=== PATIENT | female | born 1965 | race African-American/Black ===

== ENCOUNTER 2017-04-11 16:52 | Inpatient (IN) | payer OTHER, MEDICARE ==
[~2017-04-11] VITALS: Ht 157.5 cm; Wt 97.1 kg
[~2017-04-11 16:52] MED LIST: ADVAIR 250-501 EACH INH; ASPIRIN325 M2 PO; CARVEDILOL6.25 M1 PO; CIPRO500 M1 PO; FLAGYL500 MG PO; LASIX20 M1 PO; LEVAQUIN500 M1 PO; LISINOPRIL20 M1 PO; METHOTREXATE2.5 M2 PO; MEXILETINE HCL150 M1 PO; PREDNISONE20 M1 PO; SPIRONOLACTONE25 M1 PO; ULTRAM50 M1 PO; VENTOLIN HFA18 GM INH
--- NOTE | 2017-04-11 17:03 | NUR ---
51 YO FEMALE TO TRIAGE STATING "ME DEFIBRILLATOR WENT OFF" STATES SHE WAS JUST SITTING DOWN PLAYING ON HER PHONE WHEN SHE STARTED TO GET LIGHTHEADED. STATES NEXT THING SHE KNEW SHE DROPPED HER PHONE AND HAD PAIN/PRESSURE ON L SIDE OF CHEST. STATES SHE CURRENTLY STILL HAS THE PRESSURE BUT STATES THE PAIN HAS SUBSIDED. EKG IN PROGRESS. 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
--- NOTE | 2017-04-11 17:23 | NUR ---
PT NSR ON COMPLAINT SUPERVISOR WITH OCCASIONAL PAC'S. BRII BARR AT BEDSIDE FOR EVAL.
[2017-04-11] MEDS ORDERED: ASPIRIN EC81 M1 PO (17:32)
[2017-04-11] MEDS ORDERED: PRINIVIL5 M1 PO (17:34)
[2017-04-11] MEDS ORDERED: LASIX40 M1 PO (17:34)
[2017-04-11] MEDS ORDERED: PREDNISONE2.5 M1 PO (17:35)
[2017-04-11] MEDS ORDERED: CARVEDILOL12.5 M1 PO (17:36)
[2017-04-11] MEDS ORDERED: SINGULAIR10 M1 PO (17:36)
[2017-04-11 17:37] LABS: ABSOLUTE BASOPHIL COUNT 0.1 /CUMM (0.0-0.2); ABSOLUTE EOSINOPHIL COUNT 0.8 /CUMM (0.0-0.7); ABSOLUTE GRANULOCYTE CT 3.3 /CUMM (1.4-6.5); ABSOLUTE LYMPH COUNT 1.6 /CUMM (1.2-3.4); ABSOLUTE MONOCYTE COUNT 0.8 /CUMM (0.10-0.60); EOSINOPHIL % 12.4 % (0-5); HEMATOCRIT 41.5 % (37-47); MEAN CORPUSCULAR HGB 29.4 PG (27.0-31.0); MEAN CORPUSCULAR HGB CONC 32.3 G/DL (33.0-37.0); MEAN PLATELET VOLUME 8.9 FL (7.4-10.4); PLATELET COUNT 207 /CUMM (130-400); RBC DISTRIBUTION WIDTH 16.5 % (11.5-14.5); RED BLOOD CELL CT 4.56 /CUMM (4.20-5.40); WHITE BLOOD CELL COUNT 6.5 /CUMM (4.8-10.8)
[2017-04-11] MEDS ORDERED: LASIX80 M1 PO (17:39)
[2017-04-11] MEDS ORDERED: PREDNISONE20 M1 PO (17:40)
--- NOTE | 2017-04-11 17:58 | RADIOLOGY REPORT ---
EXAMINATION: XR PORTABLE CHEST CLINICAL INFORMATION: Defibrillator was activated COMPARISON: Chest x-ray 07/22/2016 TECHNIQUE: Portable frontal view of the chest was obtained. 5:33 PM FINDINGS: AICD leads in right ventricle and right atrium unchanged position since prior study. Heart size enlarged. No pulmonary vascular congestion. Lungs are clear. No pleural effusion or pneumothorax. IMPRESSION: No acute abnormality. No change in position of AICD leads. Cardiomegaly.
--- NOTE | 2017-04-11 18:02 | ED CARDIAC/CP/PALPITATIONS ---
See Addendum History of Present Illness General Chief Complaint: Chest Pain Stated Complaint: DEFIBRILLATOR WENT OFF 25MIN AGO, CHEST PRESSURE Source: patient, old records Exam Limitations: no limitations Vital Signs & Intake/Output Vital Signs & Intake/Output Vital Signs Date Time Temp Pulse Resp B/P B/P Pulse O2 O2 Flow FiO2 Mean Ox Delivery Rate 04/11 1824 96.1 89 15 121/76 99 Room Air Room Air 04/11 1721 Room Air Room Air 04/11 1706 121/67 04/11 1703 98.6 97 20 98 Room Air Allergies Coded Allergies: Penicillins (Severe, SWELLING FACE, CHEST - PT REPORTS NO DYSPNEA 06/30/16) codeine (Severe, ANAPHYLAXIS 06/30/16) shellfish derived (Intermediate, ANAPHYLAXIS 06/30/16) Reconcile Medications Albuterol Sulfate (Ventolin Hfa) 18 GM HFA.AER.AD 2 PUF INH 4XDAILY PRN ASTHMA (Reported) Aspirin (Ecotrin*) 81 MG TABLET.DR 1 TAB PO DAILY HEART/BLOOD (Reported) Carvedilol 12.5 MG TABLET 1 TAB PO BID HEART/BP (Reported) Fluticasone/Salmeterol (Advair 250-50 Diskus) 1 EACH BLST.W.DEV 1 PUF INH BID ASTHMA (Reported) Furosemide (Lasix) 40 MG TABLET 1 TAB PO BID DIURETIC (Reported) Lisinopril (Prinivil) 5 MG TABLET 1 TAB PO DAILY HEART/BP (Reported) Methotrexate 2.5 MG TABLET 8 TAB PO QMON RA (Reported) Mexiletine HCl 150 MG CAPSULE 1 CAP PO BID HEART (Reported) Montelukast Sodium (Singulair) 10 MG TABLET 1 TAB PO QHS ALLERGIES (Reported) Prednisone 20 MG TABLET 1 TAB PO DAILY ARTHRITIS (Reported) Spironolactone 25 MG TABLET 1 TAB PO DAILY HEART/DIURETIC (Reported) Triage Note: 51 YO FEMALE TO TRIAGE STATING "ME DEFIBRILLATOR WENT OFF" STATES SHE WAS JUST SITTING DOWN PLAYING ON HER PHONE WHEN SHE STARTED TO GET LIGHTHEADED. STATES NEXT THING SHE KNEW SHE DROPPED HER PHONE AND HAD PAIN/PRESSURE ON L SIDE OF CHEST. STATES SHE CURRENTLY STILL HAS THE PRESSURE BUT STATES THE PAIN HAS SUBSIDED. EKG IN PROGRESS. 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 Triage Nurses Notes Reviewed? yes Onset: Abrupt Duration: hour(s): (1), better Timing: single episode today Quality/Severity: moderate, aching Location: LEFT SIDED Radiation: no radiation Activities at Onset: none Prior Chest Pain/Card Workup: SIMILAR SX Associated Symptoms: DENIES HPI: 51 year old female with history of asthma, hypertension and non-ischemic cardiomyopathy with AICD placement 2004 presents to the ER for evaluation after her defibrillator went off roughly an hour ago. She states she was resting sitting down on her phone when it fired. She states since then she's had pain over her left anterior chest wall over the site of the defibrillator. She states that her defibrillator fire approximately one year ago for which she was seen here at the time she was found to have had an episode of V. tach causing the defibrillation. She denies any shortness of breath dizziness lightheadedness fever chills cough hemoptysis abdominal pain nausea vomiting. Her national facilities manager is Dr. Milligan in [place] (OTF PARRISH) Past History Travel History Traveled to [place] past 21 day No Medical History Any Pertinent Medical History? see below for history Neurological: NONE EENT: NONE Cardiovascular: cardiomyopathy, hypertension, DEFIBRALTOR Respiratory: asthma Gastrointestinal: DIVERTIC Hepatic: NONE Renal: NONE Musculoskeletal: RHEUMATOID ARTHRITIS Psychiatric: NONE Endocrine: NONE Blood Disorders: NONE Cancer(s): NONE AUTO HAULER/Reproductive: NONE History of MRSA: No History of VRE: No History of CDIFF: No Surgical History Surgical History: DEFIBRILLATOR Psychosocial History What is your primary language Gabonese Tobacco Use: Never used Family History Hx Contributory? No (OTF PARRISH) Review of Systems Review of Systems Constitutional: Reports: see HPI. All Other Systems: Reviewed and Negative Comments Review of systems: See HPI, All other systems negative. Constitutional, no chills no fever, no malaise HEENT: No visual changes no sore throat no congestion Cardiovascular: No chest pain , no palpitation Skin: no rashes, no change in skin Respiratory: No dyspnea no cough no sputum GI: No nausea no vomiting, no diarrhea, : No dysuria No hematuria, Muscle skeletal: No joint pain, no back pain, no neck pain, Neurologic: No numbness no headache Psych: No stress Heme/endocrine: No bruising Immunology: No lymphadenopathy (OTF PARRISH) Physical Exam Physical Exam General Appearance: well developed/nourished, no apparent distress, alert Cardiovascular: regular rate/rhythm Comments: Well-developed well-nourished person in no acute distress HEENT: Normal EENT exam; PERRL, EOMI, HEAD is atraumatic. moist mucous membranes. Neck: Supple, normal range of motion Back: Nontender, Full range of motion Cardiovascular: Regular rate and rhythms no murmurs rubs Respiratory: Chest nontender.There were no bony deformities, no asymmetry. No respiratory distress. Patient speaking in full complete sentences. Breath sounds clear to auscultation bilaterally: NO W/R/R Abdomen: Soft, nontender nondistended, no appreciable organomegaly. Normal bowel sounds. No rebound/guarding, No. Extremity: No edema, full range of motion of extremities Neuro: Alert oriented x3, motor sensory normal, There were no obvious focal neurologic abnormalities. Skin: No appreciable rash on exposed skin, skin is warm and dry. Psych: Mood and affect is normal, memory and judgment is normal. Core Measures ACS in differential dx? Yes Severe Sepsis Present: No Septic Shock Present: No (OTF PARRISH) Progress Differential Diagnosis: AMI, aortic dissection, atrial fibrillation, musculoskeletal pain, myocarditis, pericarditis, pneumonia, pneumothorax, pulmonary embolism, PVCs/PACs, unstable angina, V-fib/V-Tach, WPW syndrome Plan of Care: Orders Procedure Date/time Status Regular Diet 04/12 B Active Add-on Test (ER Only) 04/11 1721 Active Telemetry/Furniture Finisher Apprentice 04/11 1721 Active MAGNESIUM 04/11 1715 Complete TROPONIN LEVEL 04/11 171 Complete COMPREHENSIVE METABOLIC PANEL 04/11 1714 Complete CBC WITHOUT DIFFERENTIAL 04/11 1714 Complete EKG 04/11 1653 Active Laboratory Tests 04/11/17 1715: Anion Gap 10, Estimated GFR > 60, BUN/Creatinine Ratio 20.0, Glucose 99, Calcium 9.3, Magnesium 2.0, Total Bilirubin 0.8, AST 58 H, ALT 40, Alkaline Phosphatase 129 H, Troponin I < 0.01, Total Protein 6.7, Albumin 3.5, Globulin 3.2, Albumin /Globulin Ratio 1.1, CBC w Diff NO MAN DIFF REQ, RBC 4.56, MCV 91.0, MCH 29.4, RDW 16.5 H, MPV 8.9, Gran % 50.0, Lymphocytes % 24.6, Monocytes % 12.0 H, Eosinophils % 12.4 H, Basophils % 1.0, Absolute Granulocytes 3.3, Absolute Lymphocytes 1.6, Absolute Monocytes 0.8 H, Absolute Eosinophils 0.8, Absolute Basophils 0.1, PUBS MCHC 32.3 L Labs ordered old records reviewed patient denies any symptoms at this time case discussed with Dr. FERNANDES who spoke with dr yun regarding the pt, advised to call back after defib is interrogatted by [employer] [id number] i spoke with [employer] rep who will be in in approx 1 hour to eval pt Discussed with the patient at length all of her lab results to date pending [employer] evaluation (OTF PARRISH) 04/11/2017 6:58:41 PM OTF BARR PA-C discussed handoff and which currently patient will require internal defibrillator interrogation by [employer] did present for interrogation of the defibrillator in which there is reported ventricular tachycardia and ventricular fibrillation noted (OTF GARCIA) Diagnostic Imaging: Viewed by Me: Radiology Read. Discussed w/RAD: Radiology Read. Radiology Impression: PATIENT: PENNY BERNSTEIN PRESENT AGE: 51 PATIENT ACCOUNT NO: [id number] : 64 LOCATION: [facility] ORDERING PHYSICIAN: OTF TERESA SERVICE DATE: 04/11/17 EXAM TYPE: RAD - XRY- PORTABLE CHEST XRAY EXAMINATION: XR PORTABLE CHEST CLINICAL INFORMATION: Defibrillator was activated COMPARISON: Chest x-ray 07/22/2016 TECHNIQUE: Portable frontal view of the chest was obtained. 5:33 PM FINDINGS: AICD leads in right ventricle and right atrium unchanged position since prior study. Heart size enlarged. No pulmonary vascular congestion. Lungs are clear. No pleural effusion or pneumothorax. IMPRESSION: No acute abnormality. No change in position of AICD leads. Cardiomegaly. DICTATED BY: RATNA ESPINOSA MD DATE/TIME DICTATED:04/11/171751 MAINTENANCE CUSTODIAN:LILLY DATE/TIME TRANSCRIBED:1751 CONFIDENTIAL, DO NOT COPY WITHOUT APPROPRIATE AUTHORIZATION. < Electronically signed in Other Vendor System> SIGNED BY: RATNA ESPINOSA MD 1757 Initial ED EKG: normal intervals, normal p-waves, normal QRS complex, normal sinus rhythm (90), FREQUENT PVCS Prior EKG: unchanged Rhythm Strip: normal sinus rhythm Hand-Off Endorsed To: OTF GARCIA Endorsed Time: 1837 Pending: consult ([employer]) (OTF PARRISH) Departure Departure Disposition: STILL A PATIENT Condition: Stable Clinical Impression Primary Impression: Defibrillator discharge Referrals: FLORINA OLIVEROS MD Departure Forms: Customer Survey General Discharge Information (OTF PARRISH) PA/AUTO SERVICER Co-Sign Statement Statement: ED Attending supervision documentation- [X] I saw and evaluated the patient. I have also reviewed all the pertinent lab results and diagnostic results. I agree with the findings and the plan of care as documented in the PA's/AUTO SERVICER's documentation. [] I have reviewed the ED Record and agree with the PA's/AUTO SERVICER's documentation. [] Additions or exceptions (if any) to the PAs/AUTO SERVICER's note and plan are summarized below: [] I've seen and personally examined the patient and I agree with the PAs evaluation. (DOM MURO,TINY Bernstein) Critical Care Note Critical Care Note Critical Care Time: non-applicable (OTF PARRISH)
--- NOTE | 2017-04-11 18:45 | NUR ---
PT RESTING ON STRETCHER, PROVIDED FOOD TRAY. NSR WITH PAC'S NOTED.
--- NOTE | 2017-04-11 18:48 | NUR ---
WOMAN AT BEDSIDE FOR ICD CHECK.
--- NOTE | 2017-04-11 19:17 | NUR ---
PT UP TO COMMODE WITH HEART MONITOR IN PLACE. WILL CONTINUE TO MONITOR.
--- NOTE | 2017-04-11 19:22 | NUR ---
BRII CSATREJON AT BEDSIDE.
--- NOTE | 2017-04-11 19:23 | NUR ---
PT COMPLAINS OF CHEST PALPITATIONS WITH RISING FROM COMMODE AND PIVOTING TO BED. BRII CASTREJON AWARE.
--- NOTE | 2017-04-11 20:26 | NUR ---
[facility] [place] [place]. PT DENIES ANY CHEST PALPITATIONS AT THIS TIME. WILL CONTINUE TO MONITOR.
--- NOTE | 2017-04-11 20:51 | NUR ---
PT RESTING ON STRETCHER. PT DENIES ANY DISTRESS AT THIS TIME. HEART MONITOR REMAINS IN PLACE. WILL CONTINUE TO MONITOR.
--- NOTE | 2017-04-11 22:05 | History & Physical ---
RUBEN LAZAR MD 04/11/17 2429: General Information and [facility] MD Statement: I have seen and personally examined PENNY LAZAR and documented this H&P. The patient is a 51 year old F who presented with a patient stated chief complaint of defibrillator discharge. Source of Information: patient, old records Exam Limitations: no limitations History of Present Illness: Ms. Lazar is a pleasant 51 year old female with PMH asthma (1 previous intubation in 1997), diverticulitis, rheumatoid arthritis, hypertension, non- ischemic cardiomyopathy with AICD placement and known valvular regurgitations who presented to [facility] with chief complaint of AICD discharge. According to the patient, she was in her normal state of health until this afternoon when she was sitting down using her cellphone and her defibrillator discharged. She was having a relaxing day as she has lumbar stenosis and is trying to rest her back. She has previously experienced AICD firing, the most recent in June of 2016. A little after 3 PM, she noticed she was slighty light-headed and her heart raced briefly. This was followed by the defibrillator charge. She lossed consciousness for a very short duration of time as she noted her cellphone was on the floor and did not know how that happened. She subsequently called her grandson who lives close by to bring her to the emergency room. Review of systems is significant for light headedness, left chest/breast discomfort/ burning, slight headache which has since subsided and bloating. The headache is rated a 1.5/10, does not radiate and is located in the left periorbital region. Social history is negative for tobacco, alcohol or illicit drug use (current or previous). She lives home and is functionalyl independant; she ambulates without assistance. She is currently on disability secondar to lumbar stenosis/low back pain. She follows with these physicians: Dr. Tobias Sol (PCP), a magneto specialist and Dr. Milligan (Cardiology). Past surgical history is significant for AICD placement in 2004 and mitral valve clip in November of this year. AICD interrogation in the ED by [employer] showed ventricular tachycardia. Allergies/Medications Allergies: Coded Allergies: Penicillins (Severe, SWELLING FACE, CHEST - PT REPORTS NO DYSPNEA 06/30/16) codeine (Severe, ANAPHYLAXIS 06/30/16) shellfish derived (Intermediate, ANAPHYLAXIS 06/30/16) Home Med list Albuterol Sulfate (Ventolin Hfa) 18 GM HFA.AER.AD 2 PUF INH 4XDAILY PRN ASTHMA (Reported) Aspirin (Ecotrin*) 81 MG TABLET.DR 1 TAB PO DAILY HEART/BLOOD (Reported) Carvedilol 12.5 MG TABLET 1 TAB PO BID HEART/BP (Reported) Fluticasone/Salmeterol (Advair 250-50 Diskus) 1 EACH BLST.W.DEV 1 PUF INH BID ASTHMA (Reported) Furosemide (Lasix) 40 MG TABLET 1 TAB PO BID DIURETIC (Reported) Lisinopril (Prinivil) 5 MG TABLET 1 TAB PO DAILY HEART/BP (Reported) Methotrexate 2.5 MG TABLET 8 TAB PO QMON RA (Reported) Mexiletine HCl 150 MG CAPSULE 1 CAP PO BID HEART (Reported) Montelukast Sodium (Singulair) 10 MG TABLET 1 TAB PO QHS ALLERGIES (Reported) Prednisone 20 MG TABLET 1 TAB PO DAILY ARTHRITIS (Reported) Spironolactone 25 MG TABLET 1 TAB PO DAILY HEART/DIURETIC (Reported) Compliance With Home Meds: GOOD Past History Travel History Traveled to [place] past 21 day No Medical History Neurological: NONE EENT: NONE Cardiovascular: cardiomyopathy, hypertension, DEFIBRALTOR Respiratory: asthma Gastrointestinal: DIVERTIC Hepatic: NONE Renal: NONE Musculoskeletal: RHEUMATOID ARTHRITIS Psychiatric: NONE Endocrine: NONE Blood Disorders: NONE Cancer(s): NONE COMPANION CAREGIVER/Reproductive: NONE History of MRSA: No History of VRE: No History of CDIFF: No Surgical History Surgical History: DEFIBRILLATOR Past Family/Social History Psychosocial History Where do you live? Home Who Do You Live With? child Services at Home: None Primary Language: Estonian Smoking Status: Never Smoked ETOH Use: denies use Illicit Drug Use: denies illicit drug use Functional Ability ADLs Independent: dressing, eating, toileting, bathing. Ambulation: independent IADLs Independent: shopping, housework, finances, food prep, telephone, transportation , medication admin. Sexual History Sexually Active No Employment History Employment Disability Review of Systems Review of Systems Constitutional: Denies: chills, fever, malaise. EENTM: Denies: blurred vision, visual changes, hearing changes, nasal congestion. Cardiovascular: Reports: chest pain (Left chest discomfort). Denies: edema, peripheral edema. Respiratory: Denies: cough, short of breath, wheezing. GI: Reports: bloating. Denies: abdominal pain, constipation, diarrhea, nausea, vomiting. Genitourinary: Denies: dysuria, hematuria. Musculoskeletal: Reports: back pain (Chronic low back pain). Denies: joint swelling. Skin: Denies: lesions, rash. Neurological/Psychological: Reports: headache. Denies: confusion, numbness, paresthesia. Hematologic/Endocrine: Denies: bruising, bleeding. Immunologic/Allergic: Denies: splenectomy. All Other Systems: Reviewed and Negative Exam & Diagnostic Data Last 24 Hrs of Vital Signs/I&O Vital Signs Date Time Temp Pulse Resp B/P B/P Pulse O2 O2 Flow FiO2 Mean Ox Delivery Rate 04/11 2206 96.8 80 18 110/72 98 Room Air 04/11 1922 93 22 120/86 96 Room Air 04/11 1824 96.1 89 15 121/76 99 Room Air Room Air 04/11 1721 Room Air Room Air 04/11 1706 121/67 04/11 1703 98.6 97 20 98 Room Air Physical Exam General Appearance Alert, Oriented X3, Cooperative, No Acute Distress Skin No Rashes, No Breakdown, No Significant Lesion Skin Temp/Moisture Exam: Warm/Dry HEENT Atraumatic, PERRLA, EOMI, Mucous Membr. moist/pink Neck Supple, No JVD, No thryomegaly Lymphatic Cervical nl Cardiovascular Regular Rate, Normal S1, No Murmurs, Systolic murmur appreciated Lungs Normal Air Movement, Occasional wheeze Abdomen Normal Bowel Sounds, Soft, Slight tenderness to epigastric palpation. No hepatomegaly appreciated. Neurological Normal Speech, Normal Tone Extremities No Clubbing, No Cyanosis, No Edema, No Tenderness/Swelling Vascular Pulses Symmetrical Last 24 Hrs of Labs/Bennett: Laboratory Tests 04/11/17 1715: Anion Gap 10, Estimated GFR > 60, BUN/Creatinine Ratio 20.0, Glucose 99, Calcium 9.3, Magnesium 2.0, Iron 142, TIBC 354, Ferritin Pending, Total Bilirubin 0.8, AST 58 H, ALT 40, Alkaline Phosphatase 129 H, Lactate Dehydrogenase 608, Troponin I < 0.01, Total Protein 6.7, Albumin 3.5, Globulin 3.2, Albumin/ Globulin Ratio 1.1, CBC w Diff NO MAN DIFF REQ, RBC 4.56, MCV 91.0, MCH 29.4, RDW 16.5 H, MPV 8.9, Gran % 50.0, Lymphocytes % 24.6, Monocytes % 12.0 H, Eosinophils % 12.4 H, Basophils % 1.0, Absolute Granulocytes 3.3, Absolute Lymphocytes 1.6, Absolute Monocytes 0.8 H, Absolute Eosinophils 0.8, Absolute Basophils 0.1, PUBS MCHC 32.3 L Diagnostic Data EKG Results NSR HR 89 bpm, PVCs, QTC 507. CXR Results FINDINGS: AICD leads in right ventricle and right atrium unchanged position since prior study. Heart size enlarged. No pulmonary vascular congestion. Lungs are clear. No pleural effusion or pneumothorax. IMPRESSION: No acute abnormality. No change in position of AICD leads. Cardiomegaly. Assessment/Plan Assessment: Ms. Lazar is a pleasant 51 year old female with PMH asthma (1 previous intubation in 1997), diverticulitis, rheumatoid arthritis, hypertension, non- ischemic cardiomyopathy with AICD placement and known valvular regurgitations who presented to [facility] with chief complaint of AICD discharge. Around 3 PM, patient was relaxing on the couch, experienced a bried episode of heart racing with diaphoresis and then experienced a defibrillator discharge. She believes she briefly lossed consciousness and woke up with a slight left sided headache. She subsequently presented to the ED for evaluation. In the ED: Vital signs T 98.6, HR 97, RR 20, BP 121/67 and O2 sat 98% on RA. Labs were significant for WBC 6.5, H&H 13.4/41.5, Plt 207. BEP was unremarkable except for a slightly elevated BUN to 18. AST was elevated to 58 as well as alk phos to 129. Troponin <0.01. EKG showed NSR HR 89 bpm with PVCs. QTC 507. CXR showed no acute abnormality with AICD leads in position and cardiomegaly. [employer] interrogation in the ED showed AICD firing secondary to ventricular tachycardia. Patient is currently in OBSERVATION on the telemetry floor and the following is the management: 1. AICD discharge due to ventricular tachycardia * Patient s/p [employer] interrogation as documented above * Continuous telemetry monitoring * Cardiology consult with Dr. Lanette MD * Rule out ACS (next troponin/EKG at 11 PM and 5 AM) * Echocardiogram ordered, follow up results * Resume home coreg 12.5 mg PO BID, ASA 81 mg PO daily, lasix 40 mg PO BID, aldactone 25 daily and lisinopril 5 mg PO daily 2. Asthma * Occasional wheeze appreciated on examination * CXR shows no acute pulmonary pathology (no PTX, no pleural effusion, no PNA) * TRC nebs * Continue symbicort daily 3. Lumbar stenosis with chronic low back pain * Patient endorses she has been recently unable to fill her prednisone which has slightly worsened her chronic low back pain recently * Resume prednisone 20 mg PO daily * Tylenol for mild pain * Lidoderm patch PRN low back pain 4. HTN * Vital signs Q shift * Continue coreg 12.5 mg PO BID and lisinopril 5 mg PO daily FULL CODE DVTP: SC lovenox Heart Healthy Diet Mild pain pathway As Ranked By This Provider Problem List: 1. Defibrillator discharge 2. Diverticulitis of sigmoid colon 3. CHF (congestive heart failure) 4. HTN (hypertension) 5. Asthma 6. Nonischemic cardiomyopathy Observation Initial Note - I have personally examined PENNY LAZAR on 04/11/17 at 2236. The disposition of PENNY LAZAR is uncertain at this time and before a determination can be made, she requires a period of observation for the following reasons: telemetry monitoring, serial troponins, cardiology consult and echocardiogram. This workup will likely be able to be completed in 24-48 hours and thus she qualifies for observation at this point in time. Core Measures/Miscellaneous Acute Coronary Syndrome ACS Diagnosis: No Cerebrovascular Accident CVA/TIA Diagnosis: No Congestive Heart Failure CHF Diagnosis: No VTE (View Protocol) VTE Risk Factors: Acute medical illness, Age > 40, Obesity No [facility] VTE prophylaxis d/t: No contraindications No VTE Pharm Prophylaxis d/t: No contraindications VTE Diagnosis: No VTE Type: NONE VTE Confirmed by (Test): NONE Sepsis (View Protocol) Severe Sepsis Present: No Septic Shock Septic Shock Present: No Miscellaneous Documentation Attending Case Discussed With: LANETTE MUNOZ PhD,DAMIAN Iglesias Primary Care Physician: Dr. Tobias Sol MD Patient sees these Specialists Corn Picker Dr. Milligan (Cardiology) Level of Patient Care: Telemetry BRENDA VELASCO 04/12/17 0009: Resident Review Statement Resident Statement: discussed with internet consultant, agreed with internet consultant, discussed with family Other Findings: Patient is 51-year-old female with PMH of asthma (1 previous intubation in 1997) , diverticulitis, rheumatoid arthritis, hypertension, non-ischemic cardiomyopathy with AICD placement and known valvular regurgitations who presented to [facility] with came from home after she felt palpitations followed by firing of defibrillator. Patient reports that last time she felt her defibrillator fire was in June 2016, at that time she was admitted to [facility]. Patient reports that she was on her couch when she felt racing of her heart followed by firing of the defibrillator. Patient also reports lightheadedness following that. At the time of examination, patient was sitting comfortably on the bed, she did not have any chest discomfort anymore. Her defibrillator was interrogated which showed brief episode of Ventricular fibrillation ([employer] records in patient chart). Vital signs T 98.6, HR 97, RR 20, BP 121/67 and O2 sat 98% on RA. Labs were significant for WBC 6.5, H&H 13.4/41.5. BEP was unremarkable except for a slightly elevated BUN to 18. AST was elevated to 58 as well as alk phos to 129. Troponin <0.01. EKG showed NSR HR 89 with PVCs. QTC 507. CXR No acute abnormality. No change in position of AICD leads. Cardiomegaly. Assessment and Plan Will admit patient to telemetry as observation for closer monitoring. Will trend her troponins and EKG. Will obtain echocardiogram. Patient had mitral clips in November and had a follow up Echo which was normal. No records available. Above discussed with Dr. Still and he is in aggrement. Will continue her meds coreg 12.5 mg PO BID, ASA 81 mg PO daily, lasix 40 mg PO BID, aldactone 25 daily and lisinopril 5 mg PO daily Diet: heart healthy Patient is full code.
--- NOTE | 2017-04-11 22:05 | NUR ---
PT ASSISTED TO AND FROM [facility]. PT DENIES ANY DISTRESS. PT MEDICATED WITH TYLENOL AND PREDNISONE PER EMAR FOR BACK PAIN.
--- NOTE | 2017-04-11 22:24 | NUR ---
PT HAS A BED 179-02
--- NOTE | 2017-04-11 22:36 | NUR ---
REPORT GIVEN TO LAINE VENTURA ON TELEMETRY.
[2017-04-11 22:58] VITALS: BP 120/70
--- NOTE | 2017-04-12 05:14 | NUR ---
APPX 0445, PT HAD SEVEN BEAT RUN. PT CHECKED ON, STATED SHE FELT FINE AND WENT BACK TO SLEEP. MD RUBEN LAZAR NOTIFIED. WILL CONTINUE TO MONITOR
[2017-04-12 05:34] LABS: ABSOLUTE BASOPHIL COUNT 0 /CUMM (0.0-0.2); ABSOLUTE EOSINOPHIL COUNT 0 /CUMM (0.0-0.7); ABSOLUTE GRANULOCYTE CT 4.2 /CUMM (1.4-6.5); ABSOLUTE LYMPH COUNT 0.4 /CUMM (1.2-3.4); ABSOLUTE MONOCYTE COUNT 0.1 /CUMM (0.10-0.60); BASOPHIL % 0.5 % (0.0-2.0); EOSINOPHIL % 0.3 % (0-5); HEMATOCRIT 41.3 % (37-47); MEAN CORPUSCULAR HGB 29.6 PG (27.0-31.0); MEAN CORPUSCULAR HGB CONC 32.5 G/DL (33.0-37.0); MEAN CORPUSCULAR VOLUME 91.2 FL (81.0-99.0); MEAN PLATELET VOLUME 9.3 FL (7.4-10.4); PLATELET COUNT 211 /CUMM (130-400); RBC DISTRIBUTION WIDTH 16.4 % (11.5-14.5); RED BLOOD CELL CT 4.53 /CUMM (4.20-5.40); WHITE BLOOD CELL COUNT 4.8 /CUMM (4.8-10.8)
[2017-04-12 05:37] LABS: GRANULOCYTE % 88.1 % (42.2-75.2)
[2017-04-12 08:29] VITALS: BP 116/62
--- NOTE | 2017-04-12 09:19 | Event Note ---
Event Note Event Note: Patient is seen and examined at the bedside. I saw overnight telemetry events, which showed that she was in normal sinus rhythm with heart rate between 70-84 and call in the morning, 5 o'clock, she had 7 beats of V. tach. Talked the patient in the morning she was comfortable. According to her, she did not have any overnight events except she had palpitation and in the morning around 5 o' clock, but AICD device has not been fired for it. She denied for any chest pain, headache, dizziness, shortness of breath. Later I was called that patient had a run of V. tach. I went to bedside and examined the patient. She was anxious about having palpitation. Her blood pressure was 160/100. She denies any chest pain, nausea, vomiting, headache, dizziness, generalized weakness, sweating. We paged Dr. Still. He came and examined patient at the bedside. It was find out that she did not get her mexiletine dose yesterday and today. We restarted mexiletine and also started her on amiodarone drip and transferred to ICU for further management.
[2017-04-12 09:30] VITALS: BP 120/76
--- NOTE | 2017-04-12 09:31 | NUR ---
51 YEAR OLD FEMALE PRESENTS TO ICU PER DR GAMA CARDIOLOGY FOR AN AMIODARONE DRIP DUE TO PT HAVING VENTRICULAR ECTOPY THAT SHE HAS HAD AICD DEFIBRILLATION FOR. PT HAS HAD AICD SINCE 2004 FOR NON-ISCHEMIC CARDIOMYOPATHY AND HAS HAD A BATTERY CHANGE TO UNIT IN 2014, PT ALSO HAS HISTORY OF DIVERTICULITIS, VALVE REGURGE, HTN, RHEUMATOID ATRTHRITIS, AND LUMBAR STABILIZATION. PT IS ALERT AND ORIENTED, MOVING ALL EXTREMITIES. EKG NOTED SR WITH MULTIPLE PVC'S BUT NO RUNS NOTED. BP STABLE AND SATS 95% ON RA. LUNGS CLEAR. POSITIVE PULSES THROUGH OUT, SKIN INTACT WITH PT ABLE TO GET UP AND VOID IN BATHROOM. ORIENTED TO ICU AND DISCUSSED ALL CARE AND TX. AT WHICH POINT PT STATED THAT SHE THOUGHT SHE HAD HAD SOME TYPE OF ILL EFFECTS IN PAST WHEN SHE HAD AMIODARONE AND THOUGH SHE HAD A DECREASE IN HEART RATE. HELD MEDICATION FOR NOW, AND DR KUO NOTIFIED AND ON PHONE WITH DR. GAMA.
--- NOTE | 2017-04-12 09:31 | NUR ---
PT TRANSFER TO ICU FOR AMIODERONE DRIP PER DR GAMA
--- NOTE | 2017-04-12 10:30 | NUR ---
[facility] RECORDS REVIEWED WITH NO MENTION OF REACTION NOTED. PER DR GAMA AMIODARONE DRIP STARTED AT 1MG/MIN DOSING. WILL FOLLOW CLOSELY
--- NOTE | 2017-04-12 13:11 | Cons- Cardiology ---
General Information and HPI Consulting Request Date of Consult: 04/12/17 Requested By: LANETTE MUNOZ PhD,DAMIAN Iglesias History of Present Illness: Macey is a 51 year old female with history of asthma, hypertension and non- ischemic cardiomyopathy with AICD. She also carries a history of mitral regurgitation and is s/p a mitral valve clip placed this past November. Her EF is about 26%. This patient has been doing reasonably well since last June when she was admitted after a defibrillator discharge. Yesterday, she had a defibrillation discharge again and after [employer] interogated the unit it was noted that she also had an episode of antitachycardia pacing out of VT back in January. This morning the patient again had an episode of prolonged VT with a torsade appearance associated with shortness of breath and lightheadedness and followed by a chest tightness. The patient is on Mexiletine to help suppress her arrhythmias. Allergies/Medications Allergies: Coded Allergies: Penicillins (Severe, SWELLING FACE, CHEST - PT REPORTS NO DYSPNEA 06/30/16) codeine (Severe, ANAPHYLAXIS 06/30/16) shellfish derived (Intermediate, ANAPHYLAXIS 06/30/16) Home Med List: Albuterol Sulfate (Ventolin Hfa) 18 GM HFA.AER.AD 2 PUF INH 4XDAILY PRN ASTHMA (Reported) Aspirin (Ecotrin*) 81 MG TABLET.DR 1 TAB PO DAILY HEART/BLOOD (Reported) Carvedilol 12.5 MG TABLET 1 TAB PO BID HEART/BP (Reported) Fluticasone/Salmeterol (Advair 250-50 Diskus) 1 EACH BLST.W.DEV 1 PUF INH BID ASTHMA (Reported) Furosemide (Lasix) 40 MG TABLET 1 TAB PO BID DIURETIC (Reported) Lisinopril (Prinivil) 5 MG TABLET 1 TAB PO DAILY HEART/BP (Reported) Methotrexate 2.5 MG TABLET 8 TAB PO QMON RA (Reported) Mexiletine HCl 150 MG CAPSULE 1 CAP PO BID HEART (Reported) Montelukast Sodium (Singulair) 10 MG TABLET 1 TAB PO QHS ALLERGIES (Reported) Prednisone 20 MG TABLET 1 TAB PO DAILY ARTHRITIS (Reported) Spironolactone 25 MG TABLET 1 TAB PO DAILY HEART/DIURETIC (Reported) Review of Systems Review of Systems: A twelve point review of systems is unremarkable. Past History Travel History Traveled to [place] past 21 day No Medical History Blood Transfusion Hx: No Neurological: NONE EENT: NONE Cardiovascular: cardiomyopathy, hypertension, DEFIBRALTOR AICD VALVE REGURGITATION CARDIAC ARREST Respiratory: asthma, pneumonia Gastrointestinal: DIVERTIC Hepatic: NONE Renal: NONE Musculoskeletal: RHEUMATOID ARTHRITIS LUMBAR STENOSIS Psychiatric: NONE Endocrine: NONE Blood Disorders: NONE Cancer(s): NONE NETWORK ANALYST/Reproductive: NONE Surgical History Surgical History: DEFIBRILLATOR Psychosocial History Where Do You Live? Home Who Do You Live With? child Services at Home: None Primary Language: Maltese Smoking Status: Never Smoked ETOH Use: denies use Illicit Drug Use: denies illicit drug use Functional Ability ADLs Independent: dressing, eating, toileting, bathing. Ambulation: independent IADLs Independent: shopping, housework, finances, food prep, telephone, transportation , medication admin. Employment History Employment: Disability Exam & Diagnostic Data Vital Signs and I&O Vital Signs Date Time Temp Pulse Resp B/P B/P Pulse O2 O2 Flow FiO2 Mean Ox Delivery Rate 04/12 1142 Room Air Room Air 04/12 1036 78 103/64 04/12 1035 79 103/64 04/12 0857 116/62 04/12 0857 116/62 04/12 0829 97.8 76 18 116/62 97 Room Air 04/12 0006 120/70 04/12 0000 Room Air 04/11 2258 97.7 82 20 120/70 97 04/11 2206 96.8 80 18 110/72 98 Room Air 04/11 1922 93 22 120/86 96 Room Air 04/11 1824 96.1 89 15 121/76 99 Room Air Room Air 04/11 1721 Room Air Room Air 04/11 1706 121/67 04/11 1703 98.6 97 20 98 Room Air Intake & Output 04/12 1600 04/12 0800 04/12 0000 04/11 1600 04/11 0800 04/11 0000 Intake Total 220 0 Output Total Balance 220 0 Intake, Oral 220 0 Patient 214 lb Weight Weight Reported by Patient Measurement Method Physical Exam: General: WD/obese female in NAD; alert and oriented x 3 HEENT: NC/AT, PERRL, EOMI, clear oropharynx Neck: no JVD, no carotid bruit Heart: RRR with 2/6 systolic murmur at the RUSB Lungs: clear bilaterally ABdomen: soft, obese, NT, +ve bowel sounds Extremities: no edema Assessment/Plan Assessment/Plan * This patient has been noted to have multiple episodes of ventricular tachycardia requiring either antitachycardia pacing or a defibrillatory shock to return her to a normal rhythm. The episodes tend to be symptomatic and are followed by chest discomfort. Mexilitine at its current dose does not appear to be completely effective. The patient has a normal troponin and normal electrolytes. We will continue Mexilitine and will begin an Amiodarone drip with bolus to calm down her VT. I will communicate with her pedodontist for possible further drug management or ablative procedure as he deems appropriate. Continue to monitor in the ICU for now. * Obtain an echocardiogram. Consult Acknowledgment - Thank you for your consult request.
--- NOTE | 2017-04-12 15:48 | NUR ---
1110: Patient had short run of Vtach while sneezing Denies complaints, Dr. Jang aware. VSS otherwise. Singular ordered/given to help w/ allergies and relieve allergy symptoms/stop sneezing. Patient noted relief. Amiodarone gtt still running at 1mg/min and to be decreased to 0.5 mg/min at 1640. NSR on the monitor 70s-80s with pvc's and pac's noted. Continuing to monitor. No chest pain.
[2017-04-12 16:00] VITALS: BP 102/52
--- NOTE | 2017-04-12 17:08 | Discharge Summary ---
Visit Information Visit Dates Admission Date: 04/12/17 Discharge Date: 04/12/2017 Hospital Course Course Attending Physician: LANETTE MUNOZ PhD,DAMIAN Iglesias Primary Care Physician: UNKNOWN Hospital Course: Ms. Lazar is a pleasant 51 year old female with PMH asthma (1 previous intubation in 1997), diverticulitis, rheumatoid arthritis, hypertension, non- ischemic cardiomyopathy with AICD placement and known valvular regurgitations who presented to [place] with chief complaint of AICD discharge. Around 3 PM, patient was relaxing on the couch, experienced a bried episode of heart racing with diaphoresis and then experienced a defibrillator discharge. She subsequently presented to the ED for evaluation. In the ED: Vital signs T 98.6, HR 97, RR 20, BP 121/67 and O2 sat 98% on RA. Labs were significant for WBC 6.5, H&H 13.4/41.5, Plt 207. BEP was unremarkable except for a slightly elevated BUN to 18. AST was elevated to 58 as well as alk phos to 129. Troponin <0.01. EKG showed NSR HR 89 bpm with PVCs. QTC 507. CXR showed no acute abnormality with AICD leads in position and cardiomegaly. [employer] interrogation in the ED showed AICD firing secondary to ventricular tachycardia. Patient was on observation in telemetry floor and subsequently ICU floor for these medical conditions 1. AICD discharge due to ventricular tachycardia ACS was ruled out. we resumed home coreg 12.5 mg PO BID, ASA 81 mg PO daily, lasix 40 mg PO BID, aldactone 25 daily and lisinopril 5 mg PO daily. Patient again went under episode of V. tach and possible torsade de points 6 in the morning of 04/12/2017 has was transferred to ICU.patient was put on amiodraone drip Her vital signs were stable. Upon further commutation between Dr. Still in patients pyrotechnist it was decided that the patient should be transferred to [facility] for further management.patient was discharged with amiodarone drip. 2. Lumbar stenosis with chronic low back pain * Patient endorses she has been recently unable to fill her prednisone which has slightly worsened her chronic low back pain recentlly.we resumed prednisone 20 mg PO daily. Allergies: Coded Allergies: Penicillins (Severe, SWELLING FACE, CHEST - PT REPORTS NO DYSPNEA 06/30/16) codeine (Severe, ANAPHYLAXIS 06/30/16) shellfish derived (Intermediate, ANAPHYLAXIS 06/30/16) Disposition Summary Disposition Principal Diagnosis: v tach attacks Additional Diagnosis: Asthma Discharge Disposition: other general hospital Discharge Instructions General Discharge Information Code Status: Full Code Patient's Diet: heart healthy Patient's Activity: as tolerated Follow-Up Instructions/Appts: -you are being transferred to another [facility] Hospital for further management of your cognition -please Follow-up with your medical editor 7 days after discharge -Please follow-up with your primary care provider within 7 days after discharge. -We have made changes to your home medications, please read the instructions carefully. -Please come back to the hospital if your symptoms got worse. Medications at Discharge Discharge Medications: Continue taking these medications: Mexiletine HCl (Mexiletine HCl) 150 MG CAPSULE 1 Capsule ORAL TWICE DAILY Comments: PER PT Spironolactone (Spironolactone) 25 MG TABLET 1 Tablet ORAL DAILY Methotrexate (Methotrexate) 2.5 MG TABLET 8 Tablet ORAL EVERY SUNDAY Fluticasone/Salmeterol (Advair 250-50 Diskus) 1 EACH BLST.W.DEV 1 Puff Inhale through mouth TWICE DAILY Comments: PER PT Albuterol Sulfate (Ventolin Hfa) 18 GM HFA.AER.AD 2 Puff Inhale through mouth 4XDAILY as needed for ASTHMA Comments: PER PT Aspirin (Ecotrin*) 81 MG TABLET.DR 1 Tablet ORAL DAILY Furosemide (Lasix) 40 MG TABLET 1 Tablet ORAL TWICE DAILY Lisinopril (Prinivil) 5 MG TABLET 1 Tablet ORAL DAILY Montelukast Sodium (Singulair) 10 MG TABLET 1 Tablet ORAL TAKE AT BEDTIME Carvedilol (Carvedilol) 12.5 MG TABLET 1 Tablet ORAL TWICE DAILY Prednisone (Prednisone) 20 MG TABLET 1 Tablet ORAL DAILY Start taking the following new medications: Amiodarone in Dextrose,Iso-Osm (Nexterone 360 MG/200 Ml Bag) 360 MG/200 ML (1.8 MG/ML) PLAST..BAG 0.5 Milligram INTRAVEN CONTINUOUS INFUSION Days = 1 No Refills Copies To: LANETTE MUNOZ PhD,DAMIAN Iglesias
--- NOTE | 2017-04-12 17:11 | Patient Discharge Instructions ---
Discharge Instructions General Discharge Information You were seen/treated for: Heart palpitation Ventricular tachycardia Special Instructions: -you are being transferred to another [facility] Hospital for further management of your cognition -please Follow-up with your ply bander 7 days after discharge -Please follow-up with your primary care provider within 7 days after discharge. -We have made changes to your home medications, please read the instructions carefully. -Please come back to the hospital if your symptoms got worse. Diet Recommended Diet: Heart Healthy Activity Full Activity/No Limits: Yes (as tolerated) Acute Coronary Syndrome Inclusion Criteria At DC or during hospital stay patient has or had the following: ACS DIAGNOSIS No Discharge Core Measures Meds if any: Prescribed or Continued at Discharge Meds if any: NOT Prescribed or Continued at Discharge Congestive Heart Failure Inclusion Criteria At DC or during hospital stay patient has or had the following: CHF DIAGNOSIS No Discharge Core Measures Meds if any: Prescribed or Continued at Discharge Meds if any: NOT Prescribed or Continued at Discharge Cerebrovascular accident Inclusion Criteria At DC or during hospital stay patient has or had the following: CVA/TIA Diagnosis No Discharge Core Measures Meds if any: Prescribed or Continued at Discharge Meds if any: NOT Prescribed or Continued at Discharge Venous thromboembolism Inclusion Criteria VTE Diagnosis No VTE Type NONE VTE Confirmed by (Test) NONE Discharge Core Measures - Per Current guidelines, there needs to be overlap - treatment for the first 5 days of Warfarin therapy. - If discharged on Warfarin prior to 5 days of - overlap therapy, the patient will need to be - assessed for post discharge needs including - *Post discharge parental anticoagulation - *Warfarin and/or parental anticoagulation education - *Follow up date to check INR post discharge At least 5 days overlap therapy as Inpatient No Meds if any: Prescribed or Continued at Discharge Note: Overlap Therapy is Warfarin and Anticoagulant Meds if any: NOT Prescribed or Continued at Discharge
[2017-04-12] MEDS ORDERED: NEXTERONE360 MG/200 IV (17:25)
[2017-04-12 17:34] VITALS: BP 102/52
--- NOTE | 2017-04-13 11:40 | ECHOCARDIOGRAM REPORT ---
PENNY BERNSTEIN Age: 51 : 1965 Gender: F Exam Date: 04/12/2017 09:29 Exam Location: [facility] Ht (in): 62 Wt (lb): 214 BSA: 2.11 BP: 120 / 82 Ordering Physician: BRENDA VELASCO MD Referring Physician: BRENDA VELASCO MD Technologist: Stew Randall [facility] Room Number: 109 Indications: Arrhythmia Rhythm: Sinus Technical Quality: fair FINDINGS Left Ventricle Severely dilated left ventricle with normal wall thickness. Severely decreased systolic function with global hypokinesis. The ejection fraction is visually estimated at 26%. Right Ventricle The right ventricle is moderately enlarged with normal function. A defibrillator lead is noted. Right Atrium The right atrium is normal in size. Left Atrium The left atrium is mildly enlarged. The interatrial septum is intact. Mitral Valve The mitral valve has an echodense region likely related to a aydee valve clip. Mild stenosis with mild regurgitation. Aortic Valve Structurally normal aortic valve without significant sclerosis or stenosis. There is no aortic regurgitation. Tricuspid Valve The tricuspid valve is normal in structure and function. There is mild tricuspid regurgitation. Pulmonary artery systolic pressure is mildly elevated to 41mmhg. Pulmonic Valve Structurally normal pulmonic valve. There is trace pulmonic regurgitation. Pericardium Normal pericardium without effusion. No pleural effusion. Great Vessels Normal aortic root dimension. The aortic arch and great vessels are well seen and are normal. CONCLUSIONS 1. Severely decreased EF of 26%. 2. Severely dilated left ventricle. 3. Enlarge right ventricle with defibrillation lead noted. 4. Mild left atrial enlargment. 5. Mild mitral stenosis with mild mitral regurgitation. An echodense region likely related to a mitral valve clip is noted. 6. Mild tricupsid regurgitation. 7. Mild pulmonary hypertension. Sunil Still M.D. (Electronically Signed) Final Date: 13 April 2017 11:39 MEASUREMENTS (Male / Female) Normal Values 2D ECHO LV Diastolic Diameter PLAX 7.1 cm 4.2 - 5.9 / 3.9 - 5.3 cm LV Systolic Diameter PLAX 6.2 cm 2.1 - 4.0 cm LV Fractional Shortening PLAX 12.7 % 25 - 46 % LV Ejection Fraction 2D Teich 26.4 % IVS Diastolic Thickness 1.0 cm LVPW Diastolic Thickness 1.1 cm LV Relative Wall Thickness 0.3 RV Internal Dim ED PLAX 3.8 cm 1.9 - 3.8 cm LVOT Diameter 2.0 cm Aortic Root Diameter 2.3 cm LA Systolic Diameter LX 4.4 cm 3.0 - 4.0 / 2.7 - 3.8 cm LA Volume 120.0 cm 18 - 58 / 22 - 52 cm Ascending Aorta Diameter 2.6 cm DOPPLER AV Peak Velocity 124.0 cm/s AV Peak Gradient 6.2 mmHg AV Mean Velocity 89.7 cm/s AV Mean Gradient 4.0 mmHg AV Velocity Time Integral 27.1 cm LVOT Peak Velocity 76.1 cm/s LVOT Peak Gradient 2.3 mmHg LVOT Mean Velocity 46.3 cm/s LVOT Mean Gradient 1.0 mmHg LVOT Velocity Time Integral 14.9 cm LVOT Stroke Volume 46.8 cm AV Area Cont Eq vti 1.7 cm AV Area Cont Eq pk 1.9 cm MV Peak Velocity 195.0 cm/s MV Peak Gradient 15.2 mmHg MV Mean Velocity 131.0 cm/s MV Mean Gradient 8.0 mmHg Mitral E Point Velocity 146.0 cm/s Mitral A Point Velocity 183.0 cm/s Mitral E to A Ratio 0.8 MV PHT Velocity 173.0 cm/s MV Deceleration Levy 476.0 cm/s MV Pressure Half Time 109.0 ms MV Area PHT 2.0 cm MV Deceleration Time 394.0 ms MR Peak Velocity 484.0 cm/s MR Peak Gradient 93.7 mmHg TR Peak Velocity 299.0 cm/s TR Peak Gradient 35.8 mmHg Right Atrial Pressure 5.0 mmHg Pulmonary Artery Systolic Pressu 40.8 mmHg Right Ventricular Systolic Press 40.8 mmHg PV Peak Velocity 96.5 cm/s PV Peak Gradient 3.7 mmHg PV Mean Velocity 67.3 cm/s PV Mean Gradient 2.0 mmHg PV Velocity Time Integral 22.6 cm LV E' Lateral Velocity 8.3 cm/s Mitral E to LV E' Lateral Ratio 17.6 LV E' Septal Velocity 5.4 cm/s Mitral E to LV E' Septal Ratio 27.2
== END 2017-04-12 18:40 | disposition short-term general hospital (02) | DRG 309 ==
LOC: ERH 16:52 → CRI 21:08 → ERHI 21:08 → ENRESERV 22:19 → ENTRNSPT 22:36 → EDTRNSPTSTS 22:43 → CRI 22:49 → 1NO 22:49 → CMPTRNSPT 23:04 → 1NO 04-12 08:25 → CRI 04-12 09:18
PROVIDERS: Internal Medicine; Physician Assistant Medical; ADMIT Internal Medicine Interventional Cardiology
DX: I47.2 Ventricular tachycardia (principal); I42.8 Other cardiomyopathies; Z95.810 Presence of automatic (implantable) cardiac defibrillator; I10 Essential (primary) hypertension; J45.909 Unspecified asthma, uncomplicated; M06.9 Rheumatoid arthritis, unspecified; M48.06 Spinal stenosis, lumbar region
CPT/HCPCS: 1NSP; CCU; 36415; 82436; 83010; 93005; 93010; 93306; J0282; J1650; J1940; J3490